=== PATIENT | male | born 1975 | race Two or more races ===

== ENCOUNTER 2023-08-24 22:23 | Emergency (ER) | payer MEDICAID, OTHER ==
[~2023-08-24] VITALS: Ht 170.2 cm; Wt 70.0 kg
[2023-08-24 22:38] VITALS: BP 110/68; PULSE 95; RESP 18; TEMP 97.9; O2SAT 96
== END 2023-08-25 01:42 | disposition home or self-care (01) ==
LOC: ER 22:23
DX: F10.229 Alcohol dependence with intoxication, unspecified (principal); J45.909 Unspecified asthma, uncomplicated; Y90.9 Presence of alcohol in blood, level not specified
CPT/HCPCS: 71045; 99283

== ENCOUNTER 2023-11-13 13:23 | Emergency (ER) | payer OTHER ==
[~2023-11-13] VITALS: Ht 177.8 cm; Wt 75.0 kg
[2023-11-13 13:24] VITALS: O2SAT 95
[2023-11-13 15:03] VITALS: BP 105/68; PULSE 97; RESP 18; TEMP 98.5
[2023-11-13 17:13] LABS: BASOPHILS % 0.5 % (0.0-2.0); EOSINOPHILS % 2.1 % (0.0-5.0); HEMATOCRIT. 36.7 % (42.0-52.0); HEMOGLOBIN. 12.3 g/dL (14.0-18.0); LYMPHOCYTES % 51.5 % (20.0-50.0); MEAN CORPUSCULAR HEMOGLOBIN 31.8 pg (28.0-32.0); MEAN CORPUSCULAR HGB CONC 33.5 g/dL (31.0-37.0); MEAN PLATELET VOLUME 8.6 fl (7.4-10.4); MONOCYTES % 4.8 % (2.0-8.0); NEUTROPHILS % 41.1 % (40.0-76.0); PLATELET 134 x1000/uL (130-400); RED BLOOD CELL COUNT 3.86 mill/uL (4.7-6.1); RED CELL DISTRIBUTION WIDTH 16.8 % (11.6-14.6); WHITE BLOOD COUNT 5.8 x1000/uL (4.5-11.0)
[2023-11-13 17:20] LABS: CHLORIDE 112 mEq/L (98-107); POTASSIUM 3.7 mEq/L (3.5-5.1); SODIUM 145 mEq/L (136-145)
[2023-11-13 17:21] LABS: CARBON DIOXIDE 23 mEq/L (21-32)
[2023-11-13 17:22] LABS: CALCIUM 8.8 mg/dL (8.7-10.4)
[2023-11-13 17:26] LABS: CREATININE 0.6 mg/dL (0.6-1.3); GLUCOSE 108 mg/dL (70-105); TROPONIN I HIGH SENSITIVITY 8 ng/L (3.0-53)
[2023-11-13 17:27] LABS: ETHANOL BLOOD 300 mg/dL (<10); UREA NITROGEN BLOOD 10 mg/dL (9-23)
[2023-11-13 17:28] LABS: ALANINE AMINOTRANSFERASE 63 IU/L (10-49); ALBUMIN 3.8 g/dL (3.2-4.8); ASPARTATE AMINOTRANSFERASE 133 IU/L (<34)
[2023-11-13 17:29] LABS: BILIRUBIN TOTAL 0.8 mg/dL (0.1-1.0); PROTEIN TOTAL 8.1 g/dL (6.0-8.3)
== END 2023-11-13 18:00 | disposition left against medical advice (07) ==
LOC: ER 13:23
DX: R41.82 Altered mental status, unspecified (principal); J45.909 Unspecified asthma, uncomplicated; I49.9 Cardiac arrhythmia, unspecified
CPT/HCPCS: 36415; 71045; 80053; 80320; 82962; 84484; 85025; 93005; 99285; G0480

== ENCOUNTER 2024-05-15 17:10 | Emergency (ER) | payer OTHER ==
[~2024-05-15] VITALS: Ht 172.7 cm; Wt 75.0 kg
[2024-05-15 17:11] VITALS: O2SAT 100
[2024-05-15] MEDS ORDERED: ALBU18HF2 IH (17:23)
[2024-05-15 18:57] LABS: BASOPHILS % 0.6 % (0.0-2.0); EOSINOPHILS % 2.3 % (0.0-5.0); HEMATOCRIT. 31.1 % (42.0-52.0); HEMOGLOBIN. 10.3 g/dL (14.0-18.0); LYMPHOCYTES % 35.7 % (20.0-50.0); MEAN CORPUSCULAR HEMOGLOBIN 29.9 pg (28.0-32.0); MEAN CORPUSCULAR VOLUME 90.7 fL (80.0-94.0); MEAN PLATELET VOLUME 8.6 fl (7.4-10.4); MONOCYTES % 8.6 % (2.0-8.0); NEUTROPHILS % 52.8 % (40.0-76.0); PLATELET 106 x1000/uL (130-400); RED BLOOD CELL COUNT 3.43 mill/uL (4.7-6.1); RED CELL DISTRIBUTION WIDTH 20.1 % (11.6-14.6); WHITE BLOOD COUNT 6.2 x1000/uL (4.5-11.0)
[2024-05-15 19:05] LABS: CHLORIDE 111 mEq/L (98-107); SODIUM 148 mEq/L (136-145)
[2024-05-15 19:06] LABS: CALCIUM 8.2 mg/dL (8.7-10.4); CARBON DIOXIDE 26 mEq/L (21-32)
[2024-05-15 19:11] LABS: CREATININE 0.6 mg/dL (0.6-1.3); GLUCOSE 110 mg/dL (70-105); UREA NITROGEN BLOOD 6 mg/dL (9-23)
[2024-05-15 19:24] LABS: ETHANOL BLOOD 453 mg/dL (<10)
[2024-05-15 19:25] LABS: POTASSIUM 2.8 mEq/L (3.5-5.1)
[2024-05-15] MEDS: POTASSIUM CHLORIDE 20MEQ TABLET SR PO ONE (20:34)
[2024-05-15 23:24] VITALS: BP 114/67; PULSE 101; RESP 15; TEMP 36.8; O2SAT 98
== END 2024-05-15 23:37 | disposition admitted as inpatient to this hospital (09) ==
LOC: ER 17:10
DX: F10.129 Alcohol abuse with intoxication, unspecified (principal); E87.6 Hypokalemia; J45.909 Unspecified asthma, uncomplicated; Z76.0 Encounter for issue of repeat prescription; Z87.891 Personal history of nicotine dependence
CPT/HCPCS: 36415; 80048; 80320; 85025; 99285; G0480

== ENCOUNTER 2024-05-17 00:55 | Emergency (ER) | payer MEDICAID, OTHER ==
[~2024-05-17] VITALS: Ht 177.8 cm; Wt 77.0 kg
[~2024-05-17 00:55] MED LIST: ALBU18HF2 IH
[2024-05-17 01:24] VITALS: BP 140/84; PULSE 96; RESP 18; TEMP 37; O2SAT 99
== END 2024-05-17 08:09 | disposition home or self-care (01) ==
LOC: ER 00:55
DX: T51.0X1A Toxic effect of ethanol, accidental (unintentional), initial encounter (principal); J45.909 Unspecified asthma, uncomplicated; Z79.899 Other long term (current) drug therapy; Y92.89 Other specified places as the place of occurrence of the external cause
CPT/HCPCS: 99283

== ENCOUNTER 2024-05-17 10:37 | Emergency (ER) | payer MEDICAID, OTHER ==
[~2024-05-17] VITALS: Ht 167.6 cm; Wt 170.0 kg
[2024-05-17 10:40] VITALS: BP 108/70; PULSE 91; RESP 16; TEMP 36.4; O2SAT 98
[2024-05-17 11:55] LABS: CHLORIDE 111 mEq/L (98-107); EOSINOPHILS % 3.3 % (0.0-5.0); HEMATOCRIT. 32.7 % (42.0-52.0); HEMOGLOBIN. 10.6 g/dL (14.0-18.0); LYMPHOCYTES % 36.2 % (20.0-50.0); MEAN CORPUSCULAR HEMOGLOBIN 29.3 pg (28.0-32.0); MEAN CORPUSCULAR HGB CONC 32.4 g/dL (31.0-37.0); MEAN CORPUSCULAR VOLUME 90.6 fL (80.0-94.0); MEAN PLATELET VOLUME 8.9 fl (7.4-10.4); NEUTROPHILS % 50.5 % (40.0-76.0); PLATELET 103 x1000/uL (130-400); POTASSIUM 3.5 mEq/L (3.5-5.1); RED BLOOD CELL COUNT 3.61 mill/uL (4.7-6.1); RED CELL DISTRIBUTION WIDTH 19.8 % (11.6-14.6); SODIUM 145 mEq/L (136-145); WHITE BLOOD COUNT 4.4 x1000/uL (4.5-11.0)
[2024-05-17 11:56] LABS: CALCIUM 8.2 mg/dL (8.7-10.4); CARBON DIOXIDE 26 mEq/L (21-32)
[2024-05-17 12:01] LABS: CREATININE 0.6 mg/dL (0.6-1.3); GLUCOSE 95 mg/dL (70-105); UREA NITROGEN BLOOD 7 mg/dL (9-23)
[2024-05-17 12:27] LABS: ETHANOL BLOOD 408 mg/dL (<10)
== END 2024-05-17 19:35 | disposition home or self-care (01) ==
LOC: ER 10:37
DX: F10.129 Alcohol abuse with intoxication, unspecified (principal); Y90.9 Presence of alcohol in blood, level not specified
CPT/HCPCS: 36415; 80048; 80320; 85025; 99283; G0480